=== PATIENT | female | born 1965 | race Caucasian/White ===

== ENCOUNTER 2020-12-02 22:30 | Emergency (ER) | payer OTHER, MEDICAID, SELFPAY ==
[2020-12-02 22:39] VITALS: BP 117/89; PULSE 71; RESP 18; TEMP 36.8; O2SAT 98; BMI 31.8
--- NOTE | 2020-12-02 23:09 | ED_ITS ---
HPI - GI Bleed General Chief complaint: GI Bleed Stated complaint: rectal bleeding Time Seen by Provider: 12/02/20 22:35 Source: patient Mode of arrival: Ambulatory Limitations: no limitations History of Present Illness HPI Narrative: 55-year-old female nonsmoker without significant medical history presents with her in the chief complaint a day or 2 of bright red rectal bleeding. She states that she notices a small amount discoloring the toilet water and when she wipes. When she wipes she states that it bae a bit. She denies any dizziness, weakness or lightheadedness. She denies any chest pain or shortness of breath. She denies any abdominal pain, constipation, diarrhea or straining on the toilet. She denies any history of significant alcohol abuse or use of blood thinners. She denies any history of rectal bleeding has never had a colonoscopy. She states that she has not had any episodes of straining on the toilet. She states that she started a new job about a month ago and has been on her feet much more than normal. complaint: blood on toilet paper Onset (ago): day(s) Severity: mild Relieving factors: none Exacerbating factors: none Associated symptoms: denies other symptoms Treatments Prior to Arrival: none Related Data Previous Rx's Medication Instructions Recorded hydrocortisone [Anusol-HC] 1 applic MS QD-BID PRN #30 g 12/02/20 Allergies Allergy/AdvReac Type Severity Reaction Status Date / Time No Known Drug Allergies Allergy Verified 12/02/20 22:39 Review of Systems Constitutional Constitutional: Denies chills, Denies fatigue, Denies fever(s), Denies frequent falls, Denies lethargy and Denies weakness Eyes Eyes: Denies change in vision, Denies eye discharge, Denies irritation and Denies loss of vision ENT Ears, Nose, Mouth, and Throat: Denies change in voice, Denies dizziness, Denies neck pain, Denies sore throat and Denies throat swelling Cardiovascular Cardiovascular: Denies chest pain, Denies irregular heart rhythm, Denies lightheadedness, Denies palpitations, Denies dyspnea, Denies dyspnea on exertion and Denies orthopnea Respiratory Respiratory: Denies cough, Denies dyspnea, Denies dyspnea on exertion and Denies wheezing Gastrointestinal Gastrointestinal: Denies abdominal pain, Reports hematochezia, Denies change in bowel habits, Denies diarrhea, Denies nausea and Denies vomiting Musculoskeletal Musculoskeletal: Denies neck pain and Denies numbness Integumentary/Breasts Skin/Breast: Denies pruritus, Denies erythema, Denies rash and Denies wounds Neurologic Neurologic: Denies behavioral changes, Denies confusion, Denies dizziness, Denies frequent falls, Denies loss of vision, Denies numbness and Denies weakness Psychiatric Psychiatric: Denies anxiety, Denies behavioral changes, Denies confusion, Denies depression, Denies homicidal ideation and Denies suicidal ideation Endocrine Endocrine: Denies fatigue, Denies flushing and Denies palpitations Hematologic/Lymphatic Hematologic/Lymphatic: Denies easy bruising Allergic/Immunologic Allergic/Immunologic: Denies urticaria, Denies throat swelling and Denies wheezing Patient History Social History Smoking Status: Never smoker Smoking Status: Never smoker Substance Use Type: does not use Exam Narrative Exam Narrative: GEN: AOx3 and in mild distress EYES: Pupils are equal, round, and reactive to light and accommodation. Extraoccular muscles are intact bilaterally. There is no subconjunctival hemorrhage or exudate. CHEST: Lungs are clear to auscultation bilaterally and free of wheezes, rales, or rhonchi. Heart rate is regular rhythm, there are no murmurs, clicks, rubs, or gallops. There is no chest wall tenderness. ABD: Abdomen is soft and nontender. There is no guarding or rebound. Bowel sounds are normal in all 4 quadrants. There is no mass or organomegaly. RECTAL: small external hemorrhoid with bleeding. No fissure noted. No internal hemorrhoid felt on digital rectal exam. Performed with patient permission and female nursing sulfonator operator at the bedside. EXT: Full painless ROM of all extremities with no loss of sensation or strength. SKIN: Warm, pink, and dry. No erythema or rash Initial Vital Signs Initial Vital Signs: Vital Signs Temperature 98.2 F 12/02/20 22:39 Pulse Rate 71 12/02/20 22:39 Respiratory Rate 18 12/02/20 22:39 Blood Pressure 117/89 12/02/20 22:39 Pulse Oximetry 98 12/02/20 22:39 Course Vital Signs Vital signs: Vital Signs - 8 hr 12/02/20 22:39 Temperature 98.2 F Pulse Rate 71 Respiratory Rate 18 Blood Pressure 117/89 Pulse Oximetry 98 MDM - GI Bleed MDM Narrative Medical decision making narrative: Small external hemorrhoid with minimal bleeding. Patient otherwise asymptomatic. No thinners. Stable vitals. Return precautions given and questions answered to her apparent satisfaction Discharge Plan Departure Patient Disposition: Home Clinical Impression: Hemorrhoids Qualifiers: Hemorrhoid type: unspecified Qualified Code(s): K64.9 - Unspecified hemorrhoids Instructions: DI for Hemorrhoids Activity Restrictions/Additional Instructions: *You have been diagnosed with [bleeding from external hemorrhoid] *What to do: *Take medications as directed: Prescription sent to [facility] in [place], also consider taking a laxative to keep your bowel movements easy and soft. Any straining on the toilet or heavy lifting can worsen your problem. *Follow up with your primary care provider in 2-3 days, call for an appointment. Let them know you were seen in the Emergency Department and that we ask that you be seen in follow up *Return to ER if you should have any new, worsening or concerning symptoms, such as [ increased pain, bleeding, dizziness, lightheadedness or other bothersome symptoms] Prescriptions: New hydrocortisone [Anusol-HC] 2.5 % cream with perineal applicator 1 applic MS QD-BID PRN (Reason: hemorrhoids) Qty: 30 RF: 0 Referrals: Carolina Cook PA-C [Primary Care Provider] -
== END 2020-12-02 23:16 | disposition home or self-care (01) ==
PROVIDERS: Emergency Provider Emergency Medicine; PCP Physician Assistant Medical
DX: K64.9 Unspecified hemorrhoids (principal)
CPT/HCPCS: 99281

== ENCOUNTER → 2021-11-19 15:59 | Outpatient (CLI) | payer OTHER, MEDICAID, SELFPAY ==
--- NOTE | 2021-11-19 16:01 | DI.RAD.S_ITS ---
PROCEDURE: XR SHOULDER LT MIN 2V INDICATIONS: shoulder pain TECHNIQUE: 3 views of the shoulder were acquired. COMPARISON: None. FINDINGS: Bones: No fractures or dislocations. No suspicious bony lesions. Visualized ribs appear intact. Mild acromioclavicular joint space narrowing. Soft tissues: No suspicious soft tissue calcifications. IMPRESSION: Mild acromioclavicular joint degeneration. Dictated by: Kam Fernandes [facility] Interpreted: Gelacio Cabezas MD on 11/19/2021 at 16:33 Transcribed by: CARLEE on 11/19/2021 at 16:33 Approved by: Gelacio Cabezas M.D. on 11/19/2021 at 16:49
== END ==
PROVIDERS: PCP Physician Assistant Medical; Referring Provider Nurse Practitioner Family; Visit Provider Nurse Practitioner Family
DX: M19.012 Primary osteoarthritis, left shoulder (principal); M25.512 Pain in left shoulder
CPT/HCPCS: 73030

== ENCOUNTER 2024-06-10 12:28 | Emergency (ER) | payer OTHER, MEDICAID, SELFPAY ==
[2024-06-10 12:31] VITALS: BP 139/84; PULSE 88; RESP 16; TEMP 36.7; O2SAT 99; BMI 30.4
--- NOTE | 2024-06-10 12:38 | ED.EXTPRO ---
HPI - Extremity Problem <Rizwan Ulrich PA-C - Last Filed: 06/10/24 14:57> General Chief complaint: Extremity Problem,Nontraumatic Stated complaint: pain in lt foot Time Seen by Provider: 06/10/24 12:38 Source: patient Mode of arrival: Ambulatory History of Present Illness HPI Narrative: This is a 58-year-old female presents emergency department due to left foot pain for the last week. She was not recall any acute injuries. Does state that she has been standing more work for over the last couple of days. Also reports a history of a nonoperative fracture about 3 years ago. Denies any numbness,. Denies any fevers, or any other concerning signs or symptoms. Related Data Previous Rx's Medication Instructions Recorded hydrocortisone 2.5 % topical cream 1 applic DE QD-BID PRN hemorrhoids 12/02/20 with perineal applicator #30 grams (Anusol-HC) ibuprofen 600 mg tablet 600 mg PO Q6H PRN pain #30 tabs 11/03/21 Allergies Allergy/AdvReac Type Severity Reaction Status Date / Time latex AdvReac Verified 06/10/24 12:36 Review of Systems <Rizwan Ulrich PA-C - Last Filed: 06/10/24 14:57> Review of Systems Narrative: GENERAL: Denies chills, fatigue, malaise, fever, sweats. HEENT: Denies sinus pain, ear pain, sore throat, difficulty swallowing, dizziness. RESPIRATORY: Denies dyspnea, cough, wheezing, hemoptysis, sputum. CARDIOVASCULAR: Denies chest pain, palpitations, orthopnea, edema, GASTROINTESTINAL: Denies nausea, vomiting, abdominal pain, diarrhea, constipation, melena. : Denies dysuria, frequency, incontinence, hematuria, urinary retention. MUSCULOSKELETAL: Reports left foot pain SKIN: Denies rash, skin lesions, or other NEUROLOGIC: Denies weakness, headache, numbness, change in speech, confusion, seizures, incoordination. PSYCHIATRIC: No concerning psychosocial issues. 12 point review of systems is negative except for those stated above Patient History <Rizwan Ulrich PA-C - Last Filed: 06/10/24 14:57> Social History Smoking Status: Never smoker Smoking Status: Never smoker Substance Use Type: does not use Exam <Rizwan Ulrich PA-C - Last Filed: 06/10/24 14:57> Narrative Exam Narrative: GENERAL: Well-developed patient, in mild distress. HEAD: Atraumatic. Normocephalic. EYES: Pupils equal round and reactive. Extraocular motions intact. No scleral icterus. No injection or drainage. ENT: Nose without bleeding, purulent drainage. Throat without erythema, tonsillar hypertrophy or exudate. Airway patent. NECK: Trachea midline. Non tender EXTREMITIES: Mild tenderness to palpation to the distal metatarsals 2 and 3. Neurovascularly intact throughout. NEURO: AOx3. SKIN: No rash or erythema of visible areas Initial Vital Signs Initial Vital Signs: Vital Signs Temperature 98.0 F 06/10/24 12:31 Pulse Rate 88 06/10/24 12:31 Respiratory Rate 16 06/10/24 12:31 Blood Pressure 139/84 06/10/24 12:31 Pulse Oximetry 99 06/10/24 12:31 Oxygen Delivery Method Room Air 06/10/24 12:31 Oxygen Flow Rate 99 06/10/24 12:31 <Carley Taylor DO - Last Filed: 06/10/24 17:49> Initial Vital Signs Initial Vital Signs: Vital Signs Temperature 98.0 F 06/10/24 12:31 Pulse Rate 88 06/10/24 12:31 Respiratory Rate 16 06/10/24 12:31 Blood Pressure 139/84 06/10/24 12:31 Pulse Oximetry 99 06/10/24 12:31 Oxygen Delivery Method Room Air 06/10/24 12:31 Oxygen Flow Rate 99 06/10/24 12:31 Course <Rizwan Ulrich PA-C - Last Filed: 06/10/24 14:57> Orders Ordered: ED Orders 06/10/24 12:43 XR foot LT min 3V Stat Discontinued Medications Acetaminophen (Acetaminophen 325 Mg Tablet) 650 mg PO NOW ONE Stop: 06/10/24 14:25 Last Admin: 06/10/24 14:30 Dose: 650 mg Documented By: MIKALA Vital Signs Vital signs: Vital Signs - 8 hr 06/10/24 12:31 06/10/24 12:52 06/10/24 15:07 Temperature 98.0 F 98.3 F Pulse Rate 88 88 Pulse Rate [Left Dorsalis Pedis] 86 Respiratory Rate 16 18 Blood Pressure 139/84 128/78 Pulse Oximetry 99 99 Oxygen Delivery Method Room Air Room Air Oxygen Flow Rate 99 <Carley Taylor DO - Last Filed: 06/10/24 17:49> Orders Ordered: ED Orders 06/10/24 12:43 XR foot LT min 3V Stat Discontinued Medications Acetaminophen (Acetaminophen 325 Mg Tablet) 650 mg PO NOW ONE Stop: 06/10/24 14:25 Last Admin: 06/10/24 14:30 Dose: 650 mg Documented By: SB Vital Signs Vital signs: Vital Signs - 8 hr 06/10/24 12:31 06/10/24 12:52 06/10/24 15:07 Temperature 98.0 F 98.3 F Pulse Rate 88 88 Pulse Rate [Left Dorsalis Pedis] 86 Respiratory Rate 16 18 Blood Pressure 139/84 128/78 Pulse Oximetry 99 99 Oxygen Delivery Method Room Air Room Air Oxygen Flow Rate 99 MDM - Extremity (Nontraumatic) <Rizwan Ulrich PA-C - Last Filed: 06/10/24 14:57> Imaging Data Extremity x-ray #1: Radiologist's Impression: [place] [address] XRay Report Signed Patient: Mary Deluca MR#: [id number] : 1965 Acct:[id number] Age/Sex: 58 / F Date of Service: 06/10/24 Loc: ED Accession Number: [id number] Procedure: XR foot LT min 3V Ordering Provider: Rizwan Ulrich PA-C PROCEDURE: XR FOOT LT MIN 3V INDICATIONS: Left foot pain, no injury TECHNIQUE: 3 views of the foot were acquired. COMPARISON: None. FINDINGS: Bones: No fractures or dislocations. No suspicious bony lesions. Large plantar and small retrocalcaneal enthesophyte. Soft tissues: No tibiotalar joint effusion. Achilles tendon appears normal. IMPRESSION: No acute bony abnormality. Approved by: Amena Alston M.D.,Ph.D. on 06/10/2024 at 14:39 MDM Narrative Medical decision making narrative: ED course: This is a 58-year-old female presents emergency department due to left foot sprain. X-rays unremarkable. No erythema or sharp pain concerning for any kind of gout. Recommended supportive care. CC: Left foot pain Complicating co-morbidities: None Data collected from: Previous notes Medical records reviewed: Patient was seen 3 years ago due to hemorrhoids. No significant medical history. Differential considered, but not limited to: Fracture, sprain, gout, absence Exam documented above, pertinent findings include: Tenderness to palpation to the left metatarsals Lab Test results independently reviewed as above. Pertinent findings: Not obtained Imaging studies independently reviewed: X-ray unremarkable Scores Used: None MIPS Elements: None Consultations: None Treatments: Postop shoe Re-evaluations: None Discussion: Discussed plan with the patient was comfortable with the plan Diagnosis: Left foot sprain Disposition: see below, along with detailed discharge instructions that have been reviewed with patient as well as indications for ED re-evaluation and additional outpatient follow up Discharge Plan Departure Patient Disposition: Home Clinical Impression: Sprain of foot, left Activity Restrictions/Additional Instructions: Thank you for coming to the [facility] Emergency Department today. As we discussed the x-ray shows no fractures or any other abnormalities your bone. The shoe we have given you may help with the pain. You may use ibuprofen, rest, ice, and elevation to help with the pain until it improves. Please return to the emergency department if you develop any numbness, severe pain, fevers, or any other concerning signs or symptoms. I hope you feel better soon. Please follow up with your primary care provider within a week if your symptoms continue. If you do not have a primary care provider please contact the [facility] Resource line at [phone]. They will ask some questions about your medical history and help you get set up with a provider in the community. Prescriptions: No Action ibuprofen 600 mg tablet 600 mg PO Q6H PRN (Reason: pain) Qty: 30 0RF hydrocortisone [Anusol-HC] 2.5 % cream with perineal applicator 1 applic DE QD-BID PRN (Reason: hemorrhoids) Qty: 30 0RF Referrals: Carolina Cook PA-C [Primary Care Provider] - Stand Alone Forms: Patient Portal/API, Work Release Note ED Sign-out <Carley Taylor DO - Last Filed: 06/10/24 17:49> Cosign ED Attending Yasmineature Attestation: I was immediately available in the department for consultation.
--- NOTE | 2024-06-10 12:43 | DI.RAD.S_ITS ---
PROCEDURE: XR FOOT LT MIN 3V INDICATIONS: Left foot pain, no injury TECHNIQUE: 3 views of the foot were acquired. COMPARISON: None. FINDINGS: Bones: No fractures or dislocations. No suspicious bony lesions. Large plantar and small retrocalcaneal enthesophyte. Soft tissues: No tibiotalar joint effusion. Achilles tendon appears normal. IMPRESSION: No acute bony abnormality. Approved by: Amena Alston M.D.,Ph.D. on 06/10/2024 at 14:39
[2024-06-10 12:52] VITALS: PULSE 86
[2024-06-10] MEDS: ACETAMINOPHEN 325 MG TABLET 650 MG PO (14:30)
[2024-06-10 15:07] VITALS: BP 128/78; PULSE 88; RESP 18; TEMP 36.8; O2SAT 99
== END 2024-06-10 15:08 | disposition home or self-care (01) ==
PROVIDERS: Emergency Provider Physician Assistant Medical; PCP Physician Assistant Medical
DX: S93.602A Unspecified sprain of left foot, initial encounter (principal); X50.1XXA Overexertion from prolonged static or awkward postures, initial encounter
CPT/HCPCS: 73630; 99283

== ENCOUNTER 2024-07-17 16:10 | Emergency (ER) | payer SELFPAY ==
[2024-07-17 16:16] VITALS: BP 144/76; PULSE 70; RESP 18; TEMP 36.4; O2SAT 99; BMI 30.6
[2024-07-17 17:28] LABS: COVID19 -Nasal RAPID Negative (Negative)
--- NOTE | 2024-07-17 18:06 | ED_ITS ---
HPI - URI/Sore Throat <Whitney Self PA-C - Last Filed: 07/18/24 11:10> General Chief Complaint: Upper Respiratory Symptoms Stated Complaint: spit up blood, poss covid Time Seen by Provider: 07/17/24 18:01 Source: patient Mode of arrival: Ambulatory History of Present Illness HPI Narrative: Patient is a very pleasant 58-year-old female that comes into the emergency room department complaining of scratchy throat, concerns for COVID. No other further complaints. Except the patient also has some questions about ongoing right- sided knee discomfort which he is currently wearing a brace for. Patient denies recent travel, recent antibiotics, recent sick contacts. She has not had any recent COVID boosters, flu shots, or Pneumovax or shingles shots. She has not been out of the state, she has not had any fevers. She has not had any runny nose, she has not had any cough or congestion. She has done vols-jfj-anenoev Tylenol for her discomfort, no other supportive therapies for her physical complaints. She has not come in contact with anybody who has COVID. Patient states that she has had a small amount of sputum that appeared to be blood- tinged this was concerning for her. Patient has not taken anything or use anything to Felicita the back of her throat such as cough drops, throat lozenges, chamomile tea, or any type of soft textures to Felicita the back of her throat. Patient has a history of osteoarthritis, she has been told that she is going to need a left total knee replacement in the near future, she just finished 1 year physical therapy, her left knee has started to feel well. However, now her right knee has started bothering her. She is taken the brace off of her left knee that she was using it now has placed it on the right knee due to the fact the right knee has started to ache and cause her discomfort and pain. She denies any recent injury, trauma or fall. She has a relationship with an orthopedic surgeon who is currently following her for her left knee pain. The Tylenol that she does take does help with the discomfort and pain. She has been doing vsth-ctt-[id number] supportive therapy for her knee. She has not been doing any of the physical therapy exercises that she used for the left knee. This was a secondary issue that she wanted to talk with me about while here in the emergency department. It was not why she checked into the emergency room department today. Related Data Previous Rx's Medication Instructions Recorded hydrocortisone 2.5 % topical cream 1 applic [place] QD-BID PRN hemorrhoids 12/02/20 with perineal applicator #30 grams (Anusol-HC) ibuprofen 600 mg tablet 600 mg PO Q6H PRN pain #30 tabs 11/03/21 Allergies Allergy/AdvReac Type Severity Reaction Status Date / Time latex AdvReac Verified 07/17/24 16:21 Review of Systems <Whitney Self PA-C - Last Filed: 07/18/24 11:10> Review of Systems Narrative: Negative except as above ENT Comments: Scratchy throat, small amount of blood-tinged sputum with coughing Musculoskeletal Comments: Ongoing right knee discomfort and pain with a history of osteoarthritis in the left knee, known to need a total knee replacement in the near future in the left. Patient History <Whitney Self PA-C - Last Filed: 07/18/24 11:10> Social History Smoking Status: Never smoker Smoking Status: Never smoker Substance Use Type: does not use Exam <Whitney Self PA-C - Last Filed: 07/18/24 11:10> Initial Vital Signs Initial Vital Signs: Vital Signs Temperature 97.5 F L 07/17/24 16:16 Pulse Rate 70 07/17/24 16:16 Respiratory Rate 18 07/17/24 16:16 Blood Pressure 144/76 H 07/17/24 16:16 Pulse Oximetry 99 07/17/24 16:16 Oxygen Delivery Method Room Air 07/17/24 16:16 Reviewed Const General: cooperative, healthy appearing, comfortable, well developed, well groomed, No acute distress, No in distress and No anxious HENDE Head: normal to inspection, normocephalic and atraumatic Nose: external nose normal and nares normal Mouth: oral mucosae normal, lip normal, tongue normal, salivary ducts normal, oropharynx normal, moist mucous membranes, No drooling, No fetor hepaticus, No malodorous breath, No muffled voice, No oral mucosa abnormal, No salivary duct abnormal and No trismus Eyes General: Yes appearance normal, both eyes and all related structures Pupils: PERRL EOM: EOM intact bilaterally Neck Lymphatic: No lymphedema and No lymphadenopathy Resp Auscultation: clear to auscultation bilaterally, no crackles, lung sounds not diminished, no rales, no rhonchi and no wheezes Cardio Rate: regular rate Rhythm: regular rhythm Heart Sounds: S1 normal Skin General: no rashes or lesions noted, turgor normal, dry skin and warm Neuro General: patient alert, patient awake, patient oriented x3, oriented and gait normal Cranial Nerves: CN's II-XI intact bilaterally Cognition: normal cognition Speech: speech normal Gait: normal gait Extrem Other: Range of motion, strength, pulses, cap refill preserved in the upper and lower extremities, patient wearing a Velcro hinged brace on the right knee. This seems to give her support and stability. She states that the knee is causing her discomfort and pain with ambulation, she states this feels the exact same as the left did when she was having discomfort and pain. She states she has not had an x-ray, she has a history of osteoarthritis in the left knee, we will need a total knee replacement per her orthopedic surgeon. I discussed with her that she should start doing the PT exercises that she did on the left knee with the right knee, encouraged her to make an appointment with her orthopedic surgeon for x-rays. And a treatment plan. Most likely what has happened is that while she was rehabbing the left knee the right knee ended up taking the brunt of the workload which has now caused the right knee to be over stressed and has had take the brunt of the workload which is now causing discomfort and pain. It is very common when you have 1 knee that your trying to exercise and trying to heal the other leg ends up taking a lot of the workload and causes it to be sore and tender. Encouraged her to follow-up to be evaluated, might need to be referred back to PT for her right knee. Psych Other: Parents, mental status, speech, range of motion, mood, affect, attitude, thought process, thought content, judgment are all within normal limits <Jewel Spencer MD - Last Filed: 07/18/24 18:55> Initial Vital Signs Initial Vital Signs: Vital Signs Temperature 97.5 F L 07/17/24 16:16 Pulse Rate 70 07/17/24 16:16 Respiratory Rate 18 07/17/24 16:16 Blood Pressure 144/76 H 07/17/24 16:16 Pulse Oximetry 99 07/17/24 16:16 Oxygen Delivery Method Room Air 07/17/24 16:16 Scores <Whitney Self PA-C - Last Filed: 07/18/24 11:10> GCS Citation: 15 Course <Whitney Self PA-C - Last Filed: 07/18/24 11:10> Orders Ordered: ED Orders 07/17/24 16:22 COVID19 -Nasal RAPID Stat Vital Signs Vital signs: Vital Signs - 8 hr 07/17/24 16:16 Temperature 97.5 F L Pulse Rate 70 Respiratory Rate 18 Blood Pressure 144/76 H Pulse Oximetry 99 Oxygen Delivery Method Room Air Reviewed <Jewel Spencer MD - Last Filed: 07/18/24 18:55> Orders Ordered: ED Orders 07/17/24 16:22 COVID19 -Nasal RAPID Stat Vital Signs Vital signs: Vital Signs - 8 hr 07/17/24 16:16 Temperature 97.5 F L Pulse Rate 70 Respiratory Rate 18 Blood Pressure 144/76 H Pulse Oximetry 99 Oxygen Delivery Method Room Air MDM - URI/Sore Throat <Whitney Self PA-C - Last Filed: 07/18/24 11:10> Lab Data Labs: Lab Results 07/17/24 Range/Units 16:22 SARS-CoV-2 (PCR) Negative (Negative) MDM Narrative Medical decision making narrative: Pleasant 58-year-old female presents to the emergency department concerned for COVID, with a scratchy throat. COVID is negative Exam is negative for any signs or symptoms of peritonsillar abscess, concerns for pharyngitis. Low suspicion for strep throat viral or bacterial. Supportive therapy education ED precautions for not only viral UR symptoms, as well as scratchy throat, sore throat. Due to the fact the patient is limited on resources, and does not currently have health insurance we discussed homeopathic things she could do [id number] to help relieve the discomfort and pain that she has in the back of her throat scratchiness she has a back of the throat. We also discussed her doing the physical therapy exercises that she did with her left knee on the right side and help with the discomfort and in. We also then with nonsteroidals to help with the discomfort and pain . : A viral pharyngitis this, viral URI, COVID, influenza, RSV, pneumonia very low suspicion for any viral pathology, Supportive therapy, ED precautions. Discharged to follow up and establish care with her primary care doctor <Jewel Spencer MD - Last Filed: 07/18/24 18:55> Lab Data Labs: Lab Results 07/17/24 Range/Units 16:22 SARS-CoV-2 (PCR) Negative (Negative) Discharge Plan Departure Patient Disposition: Home Clinical Impression: Irritated throat, Acute pain of right knee Osteoarthritis Qualifiers: Osteoarthritis location: knee Osteoarthritis type: unspecified Laterality: right Qualified Code(s): M17.11 - Unilateral primary osteoarthritis, right knee Activity Restrictions/Additional Instructions: Your COVID test is negative. [id number] supportive therapy for a scratchy throat, chamomile tea with honey, consider salt water gargle swish and spit. Continue with Tylenol for your knee pain. Consider doing the physical therapy exercises that you did for your left knee when you were diagnosed with osteoarthritis in the left knee. Continue wearing the brace. Make an arrangement to follow up with the orthopedic surgeon. Consider soft textures such as yogurt, ice cream, popsicles, soup. Any type of textures that is going to irritate the back of her throat he is going to continue to cause her discomfort and pain. Your exam is negative for any substantial acute findings. Please make arrangements to follow up with the primary care doctor. Return to the emergency department as needed. Prescriptions: No Action ibuprofen 600 mg tablet 600 mg PO Q6H PRN (Reason: pain) Qty: 30 0RF hydrocortisone [Anusol-HC] 2.5 % cream with perineal applicator 1 applic [place] QD-BID PRN (Reason: hemorrhoids) Qty: 30 0RF Referrals: Carolina Cook PA-C [Primary Care Provider] - Stand Alone Forms: Patient Portal/API ED Sign-out <Jewel Spencer MD - Last Filed: 07/18/24 18:55> Cosign ED Attending Yasmineature Attestation: I was immediately available in the department for consultation. This documentation has been reviewed and I agree with assessment and plan. Supervised by Jewel Spencer MD
[2024-07-17 18:23] VITALS: BP 140/74; PULSE 75; RESP 20; TEMP 37; O2SAT 100
== END 2024-07-17 18:24 | disposition home or self-care (01) ==
PROVIDERS: Emergency Medicine; Emergency Provider Physician Assistant; PCP Physician Assistant Medical
DX: M17.11 Unilateral primary osteoarthritis, right knee (principal); J02.9 Acute pharyngitis, unspecified; Z11.52 Encounter for screening for COVID-19
CPT/HCPCS: 87635; 99281; 99282